=== PATIENT | male | born 1995 | race Two or more races ===

== ENCOUNTER 2024-06-06 15:41 | Emergency (ER) | payer OTHER ==
[~2024-06-06] VITALS: Ht 188 cm; Wt 73.9 kg
[2024-06-06] MEDS ORDERED: APRISO0.375 GM (15:53)
[2024-06-06] MEDS ORDERED: METHYLPREDNISOLONE SOD SUCC 40 MG VIAL ONE (16:57)
[2024-06-06] MEDS ORDERED: FAMOTIDINE/PF 20 MG/2 ML VIAL ONE (16:57)
[2024-06-06] MEDS ORDERED: ONDANSETRON HCL 2 MG/ML VIAL ONE (16:57)
[2024-06-06] MEDS ORDERED: ONDANSETRON HCL 2 MG/ML VIAL IV ONE (17:00)
[2024-06-06] MEDS ORDERED: 0.9 % SODIUM CHLORIDE 1,000 ML IV ONE (17:00)
[2024-06-06] MEDS ORDERED: METHYLPREDNISOLONE SOD SUCC 40 MG VIAL IM ONE (17:00)
[2024-06-06] MEDS ORDERED: FAMOtidine 10 MG/ML (4ML VIAL) IV ONE (17:00)
[2024-06-06 17:26] LABS: HEMATOCRIT 43.7 % (39.0-48.0); HEMOGLOBIN 15.1 g/dL (13-16.00); MEAN CELL VOLUME 86.5 fL (80.0-100.00); MEAN CORPUSCULAR HEMOGLOBIN 29.8 pg (27.00-32.0); MEAN CORPUSCULAR HGB CONC 34.4 g/dl (32.0-36.0); PLATELET COUNT 284 K/uL (150-450); RED BLOOD COUNT 5.05 M/uL (4.00-6.00); RED CELL DISTRIBUTION WIDTH 13.5 % (11.5-14.5)
[2024-06-06 17:50] LABS: ALBUMIN 4.4 gm/dL (3.4-5.0); BILIRUBIN TOTAL 0.78 mg/dL (0.3-1.2); CALCIUM 9.9 mg/dL (8.5-10.1); CREATININE SERUM 1.24 mg/dL (0.70-1.30); GFR 69.93; GLOBULINA 4.1 G/DL (2.4-3.5); POTASSIUM 4.16 mEq/L (3.5-5.1); TOTAL PROTEIN 8.5 gm/dL (6.4-8.2)
[2024-06-06] MEDS ORDERED: ZOFRAN8 MG PO (18:01)
[2024-06-06] MEDS ORDERED: PEPCID AC20 MG PO (18:01)
== END 2024-06-06 18:06 | disposition home or self-care (01) ==
LOC: ER 15:42
PROVIDERS: General Practice
DX: A05.9 Bacterial foodborne intoxication, unspecified (principal); Z91.013 Allergy to seafood
CPT/HCPCS: 36415; 96365; 96372; 99283; J2405; J3490